=== PATIENT | female | born 1980 | race American Indian/Alaskan Native ===

== ENCOUNTER 2020-11-22 17:00 | Emergency (ER) | payer OTHER ==
[2020-11-22 17:55] VITALS: BP 127/57
--- NOTE | 2020-11-22 18:37 | Emergency Department Report ---
ED Extremity Problem HPI - General Chief complaint: Extremity Injury, Lower Stated complaint: RT KNEE SWOLLEN Time Seen by Provider: 11/22/20 18:07 Source: patient Mode of arrival: Ambulatory Limitations: No Limitations - History of Present Illness Initial comments: 40-year-old female presents to the ER today with complaints of right knee pain and swelling. Patient states that her symptoms started about a week and a half ago. She denies any specific injury but she states that she works at [employer] where she does a lot of repetitive stooping and standing and then yesterday she stood on her leg for a long period of time. Patient states that the pain and swelling is mainly anterior right knee. She denies any prior issues with that knee in the past. She denies any redness or bruising. She states that the pain radiates up into her thigh and down into her segal but denies any calf pain or calf swelling. She states that is worse with flexion and extension and with ambulation and weightbearing. She has not taken anything for the pain. She denies any numbness, tingling, weakness, chest pain, shortness of breath or any other symptoms at this time. MD Complaint: joint swelling, joint paint -: Gradual, week(s) (1.5 weeks ago ) - Related Data Previous Rx's Medication Instructions Recorded Last Taken Type Ibuprofen [Motrin] 800 mg PO Q8HR PRN #30 tablet 11/22/20 Unknown Rx methylPREDNISolone [Medrol 4MG 4 mg PO DAILY #1 tab.ds.pk 11/22/20 Unknown Rx DOSEPAK (21 tabs)] Allergies Allergy/AdvReac Type Severity Reaction Status Date / Time No Known Allergies Allergy Verified 11/22/20 17:25 ED Review of Systems ROS: Stated complaint: RT KNEE SWOLLEN Other details as noted in HPI Comment: All other systems reviewed and negative Constitutional: denies: chills, diaphoresis, fever, malaise Eyes: denies: eye pain, eye discharge, vision change ENT: denies: ear pain, throat pain Respiratory: denies: cough, shortness of breath, wheezing Cardiovascular: denies: chest pain, palpitations, dyspnea on exertion, edema, syncope, paroxysmal nocturnal dyspnea Gastrointestinal: denies: abdominal pain, nausea, diarrhea, constipation, hematemesis, hematochezia Genitourinary: denies: urgency, dysuria, frequency, hematuria, discharge, abnormal menses Musculoskeletal: joint swelling, arthralgia Skin: denies: rash, lesions, change in color, change in hair/nails, pruritus Neurological: abnormal gait. denies: headache, weakness, numbness, paresthesias, confusion Psychiatric: denies: anxiety, depression, auditory hallucinations, visual hallucinations, homicidal thoughts Hematological/Lymphatic: denies: easy bleeding, easy bruising ED Past Medical Hx - Past Medical History Hx Headaches / Migraines: Yes Additional medical history: TMJ, - Surgical History Additional Surgical History: Right jaw pain, Tubaligation - Social History Smoking Status: Never Smoker Substance Use Type: None - Medications Home Medications: Home Medications Medication Instructions Recorded Confirmed Last Taken Type Ibuprofen [Motrin] 800 mg PO Q8HR PRN #30 tablet 11/22/20 Unknown Rx methylPREDNISolone [Medrol 4MG 4 mg PO DAILY #1 tab.ds.pk 11/22/20 Unknown Rx DOSEPAK (21 tabs)] ED Physical Exam - General Limitations: No Limitations General appearance: alert, in no apparent distress - Head Head exam: Present: atraumatic, normocephalic, normal inspection - Eye Eye exam: Present: normal appearance, PERRL, EOMI Pupils: Present: normal accommodation - Respiratory Respiratory exam: Present: normal lung sounds bilaterally. Absent: respiratory distress - Cardiovascular Cardiovascular Exam: Present: regular rate, normal rhythm, normal heart sounds - Extremities Exam Extremities exam: Present: full ROM (but it is painful), tenderness (Moderate suprapatellar arear and medial right knee. ), normal capillary refill, joint swelling (mild medial right knee when compared to left knee ). Absent: pedal edema, calf tenderness - Neurological Exam Neurological exam: Present: alert, oriented X3, CN II-XII intact, normal gait. Absent: motor sensory deficit - Psychiatric Psychiatric exam: Present: normal affect, normal mood - Skin Skin exam: Present: intact ED Course Vital Signs 11/22/20 17:23 Temperature 98.4 F Pulse Rate 79 Respiratory 16 Rate Blood Pressure 127/57 O2 Sat by Pulse 99 Oximetry ED Medical Decision Making - Radiology Data Radiology results: report reviewed Ordering Physician: SUN RIOS Date of Service: 11/22/20 Procedure(s): XR knee 3V RT Accession Number(s): [id number] cc: SUN BRIDGES Fluoro Time In Minutes: RIGHT KNEE 3 VIEW(S) INDICATION / CLINICAL INFORMATION: pain and swelling x 5 days COMPARISON: None available. FINDINGS: BONES / JOINT(S): No acute fracture or subluxation. No significant arthritis. There is a 3.3 cm exostosis arising from the posteromedial distal femoral metadiaphysis. This points away from the joint and may represent an osteochondroma. MRI may be helpful for further evaluation, if warranted. SOFT TISSUES: No significant abnormality. ADDITIONAL FINDINGS: None. Signer Name: Monica Espinoza MD Signed: 11/22/2020 6:46 PM Workstation Name: [id number] Transcribed By: SS Dictated By: MONICA ESPINOZA Electronically Authenticated By: MONICA ESPINOZA Signed Date/Time: 11/22/201845 DD/ 43 TD/TT: - Medical Decision Making X-ray of right knee shows no acute fracture or subluxation. No significant arthritis. There is a 3.3 cm exostosis arising from the posteromedial distal femoral metadiaphysis. This points away from the joint and may represent an osteochondroma. MRI may be helpful for further evaluation, if warranted. Also suspect knee sprain/strain due to her repetitive stooping and standing. Her physical exam does not suggest DVT, septic joint, compartment syndrome or any other significant emergent issues requiring additional work-up or admission. Discussed x-ray results with patient. Informed her she will need to follow-up with Ortho for an MRI of the knee. In the meantime recommend rest, ice and elevating the knee and should be prescribed Motrin and Medrol Dosepak. Patient expressed understanding of instructions and agree with plan. She was stable at time of discharge. Critical care attestation.: If time is entered above; I have spent that time in minutes in the direct care of this critically ill patient, excluding procedure time. ED Disposition Clinical Impression: Knee strain, Exostosis Disposition: DC-01 TO HOME OR SELFCARE Is pt being admited?: No Does the pt Need Aspirin: No Condition: Stable Instructions: Knee Sprain, Adult Additional Instructions: Rest, ice and elevate leg as often as possible for the next 2-3 days. Take the motrin/medrol dose pack as prescribed. Follow up with [facility] in 1 week for outpatient MRI to further evaluate the exostosis on xray. Return to ED if symptoms changes or worsens in anyway. Prescriptions: methylPREDNISolone [Medrol 4MG DOSEPAK (21 tabs)] 4 mg PO DAILY #1 tab.ds.pk Ibuprofen [Motrin] 800 mg PO Q8HR PRN #30 tablet PRN Reason: Pain Referrals: ELI WONG MD [Staff Physician] - 7-10 days Forms: Work/School Release Form(ED) Time of Disposition: 19:02
--- NOTE | 2020-11-22 18:50 | XRay Report ---
RIGHT KNEE 3 VIEW(S) INDICATION / CLINICAL INFORMATION: pain and swelling x 5 days COMPARISON: None available. FINDINGS: BONES / JOINT(S): No acute fracture or subluxation. No significant arthritis. There is a 3.3 cm exost osis arising from the posteromedial distal femoral metadiaphysis. This points away from the joint and may represent an osteochondroma. MRI may be helpful for further evaluation, if warranted. SOFT TISSUES: No significant abnormality. ADDITIONAL FINDINGS: None. Signer Name: Merlin Espinoza MD Signed: 11/22/2020 6:46 PM Workstation Name: [id number]
== END 2020-11-22 20:00 | disposition home or self-care (01) ==
LOC: ED 17:00
DX: S86.911A Strain of unspecified muscle(s) and tendon(s) at lower leg level, right leg, initial encounter (principal); M89.9 Disorder of bone, unspecified; G43.909 Migraine, unspecified, not intractable, without status migrainosus; Z98.51 Tubal ligation status; Z98.890 Other specified postprocedural states; Z79.1 Long term (current) use of non-steroidal anti-inflammatories (NSAID); Z79.899 Other long term (current) drug therapy; X58.XXXA Exposure to other specified factors, initial encounter; Y93.89 Activity, other specified; Y92.89 Other specified places as the place of occurrence of the external cause; Y99.8 Other external cause status